=== PATIENT | male | born 1945 | race Caucasian/White ===

== ENCOUNTER 2019-02-17 09:23 | Outpatient (CLI) | payer OTHER ==
--- NOTE | 2019-02-17 14:31 | XRAY Report ---
Reason: COUGH Procedure Date: 02/17/2019 Accession Number: [id number] Procedure: XR - Chest 2 View X-Ray CPT Code: 58151 FULL RESULT: EXAM: CHEST RADIOGRAPHY EXAM DATE: 02/17/2019 09:30 AM. CLINICAL HISTORY: Cough. COMPARISON: CHEST 2 VIEW PA/LAT 01/03/2014 9:55 AM. TECHNIQUE: 2 views. FINDINGS: Lungs/Pleura: No focal opacities evident. No pleural effusion. No pneumothorax. Normal volumes. Mediastinum: Heart and mediastinal contours are unremarkable. Other: None. IMPRESSION: Normal 2-view chest radiography. [facility]
== END 2019-02-17 09:24 | disposition home or self-care (01) ==
LOC: DI 09:23
PROVIDERS: ATTEND Nurse Practitioner Family
DX: R05 Cough (principal)
CPT/HCPCS: 71046

== ENCOUNTER 2021-06-21 15:18 | Outpatient (CLI) | payer OTHER ==
[2021-06-21] MEDS ORDERED: IOPAMIDOL-300 100 ML VIAL ONE (15:39)
[2021-06-21] MEDS ORDERED: IOPAMIDOL-300 100 ML VIAL IVP ONE (16:24)
--- NOTE | 2021-06-21 16:48 | CT Report ---
PROCEDURE: CHEST W INDICATIONS: CHRONIC COUGH CONTRAST: IV CONTRAST: Isovue 300 ml: 100 PO CONTRAST: *NO PO CONTRAST TECHNIQUE: After the administration of intravenous contrast, 5 mm thick sections acquired from the pulmonary api arelis to the posterior costophrenic angles. 7 mm thick coronal MIP reformats were acquired. For radia tion dose reduction, the following was used: automated exposure control, adjustment of mA and/or kV according to patient size. COMPARISON: None. FINDINGS: CHEST: Lungs: Scattered subsegmental scarring/atelectasis. No acute consolidation. Diffuse peribronchial cuf fing suggestive of nonspecific bronchitis and/or reactive airways disease. Pleura: No pleural effusion or pneumothorax. Heart: Normal. Lymph nodes: Normal. Thyroid: Normal. Aorta: Normal in size. Pulmonary arteries: Normal. Esophagus: Normal. Bones: Diffuse spondolytic changes and facet arthropathy. No compression fracture. Upper abdomen: Normal. IMPRESSION: Scattered subsegmental scarring/atelectasis. No acute consolidation. Diffuse peribronchial cuffing suggestive of nonspecific bronchitis and/or reactive airways disease. Reviewed by: Pernell Madrigal MD on 06/21/2021 4:47 PM PDT Approved by: Pernell Madrigal MD on 06/21/2021 4:47 PM PDT Station ID: [id number]
== END 2021-06-21 15:19 | disposition home or self-care (01) ==
LOC: DI 15:18
PROVIDERS: ATTEND Family Medicine
DX: R91.8 Other nonspecific abnormal finding of lung field (principal); R05 Cough
CPT/HCPCS: 71260; Q9967

== ENCOUNTER 2021-11-18 15:42 | Emergency (ER) | payer OTHER ==
--- NOTE | 2021-11-18 21:22 | ED Physician Documentation ---
PD HPI FOCAL NEURO - Stated complaint Stated Complaint: DIZZY,LEFT HAND NUMBNESS - Chief complaint Chief Complaint: Neuro - History obtained from History obtained from: Patient - History of Present Illness Timing - onset: Enter time (13:00), Today Timing - duration: Minutes (40) Timing - details: Abrupt onset Severity of deficit: Mild Weakness: Left Numbness: Hand Associated symptoms: No: Headache, Nausea / vomiting, Chest pain Contributing factors: negative: Anticoagulated, Vascular dz, Atrial fibrillation Baseline status: positive: A&OX3, ambulatory, indep Similar symptoms before: Has not had sx before Recently seen: Not recently seen - Additional information Additional information: at approximately 1 PM today while at work, patient had sudden onset of dizziness which lasted less than a minute. Upon recovering from the dizziness, he went to [employer] a cup and realized his left hand was numb. He denies weakness and made a specific point of determining the extent of the numbness and found that it was the entire hand but limited to just the hand (wrist and proximal areas were NVI). He is right hand dominant. He has not had similar symptoms in the past. The numbness lasted approximately 40 minutes and then resolved. He is asymptomatic at the time of this H+P Review of Systems Constitutional: reports: Reviewed and negative Eyes: reports: Reviewed and negative Cardiac: reports: Reviewed and negative Respiratory: reports: Reviewed and negative GI: reports: Reviewed and negative Musculoskeletal: reports: Reviewed and negative Neurologic: reports: Numbness. denies: Generalized weakness, Focal weakness, Difficulty speaking, Near syncope, Syncope, Headache PD PAST MEDICAL HISTORY - Past Medical History Past Medical History: No - Allergies Allergies/Adverse Reactions: Allergies Allergy/AdvReac Type Severity Reaction Status Date / Time No Known Drug Allergies Allergy Verified 11/18/21 15:53 - Living Situation Living Arrangement: reports: At home - Social History Does the pt smoke?: No PD ED PE NORMAL - Vitals Vital signs reviewed: Yes - General General: Alert and oriented X 3, No acute distress, Well developed/nourished - HEENT HEENT: PERRL, EOMI - Neck Neck: Supple, no meningeal sign - Cardiac Cardiac: RRR, No murmur, No gallop, No rub - Respiratory Respiratory: No respiratory distress, Clear bilaterally - Abdomen Abdomen: Soft, Non tender - Neuro Neuro: Alert and oriented X 3, 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, No motor deficit, No sensory deficit, Normal speech Eye Opening: Spontaneous Motor: Obeys Commands Verbal: Oriented GCS Score: 15 NIHSS - Level of Consciousness Level of consciousness: (0) Alert, Keenly responsive LOC Questions: (0) Answers both Q's correct LOC Commands: (0) Performs both correctly - Gaze Best Gaze: (0) Normal - Visual Visual: (0) No loss - Facial Palsy Facial Palsy: (0) Normal, symmetrical movement - Motor Arms (both separate) Motor Arm (right): (0) No drift Motor Arm (left): (0) No drift - Motor Legs (both separate) Motor Leg (right): (0) No drift Motor Leg (left): (0) No drift - Limb Ataxia Limb Ataxia: (0) Absent - Sensory Sensory: (0) Normal - Best Language Best Language: (0) No aphasia - Dysarthria Dysarthria: (0) Normal - Extinction and Inattention (formally neg Extinction and inattention: (0) No abnormality - Total Score/Results Total Score/Result: 0 Results - Vitals Vitals: Oxygen O2 Source Room air - EKG (time done) No standard instances Rate: Rate (enter#) (54) Rhythm: NSR [place]: Normal Intervals: Normal AL QRS: Normal Ischemia: Normal ST segments Other comments: Other comments (RSr' V1; inverted T III) - Labs Labs: Laboratory Tests 11/18/21 11/18/21 11/18/21 21:21 21:21 21:21 WBC 7.3 RBC 4.51 L Hgb 14.3 Hct 41.1 L MCV 91.1 MCH 31.7 H MCHC 34.8 RDW 11.8 L Plt Count 172 MPV 9.6 Neut # (Auto) 4.6 Lymph # (Auto) 1.8 [place] # (Auto) 0.7 Eos # (Auto) 0.2 Baso # (Auto) 0.0 Absolute Nucleated RBC 0.00 Nucleated RBC % 0.0 Sodium 140 Potassium 3.8 Chloride 103 Carbon Dioxide 26 Anion Gap 11.0 BUN 23 H Creatinine 1.6 H Estimated GFR (MDRD) 42 L Glucose 91 Calcium 9.4 Total Bilirubin 0.5 AST 35 ALT 45 Alkaline Phosphatase 56 Troponin I High Sens 23.7 H* Total Protein 6.8 Albumin 4.2 Globulin 2.6 Albumin/Globulin Ratio 1.6 Lipase 30 - Rads (name of study) chest xray Radiology: Prelim report reviewed, See rad report CTA head Radiology: Prelim report reviewed, See rad report CTA neck Radiology: Prelim report reviewed, See rad report PD MEDICAL DECISION MAKING - ED course Complexity details: reviewed results, re-evaluated patient, considered d ifferential, d/w patient ED course: presents after 40 minute episode of left hand numbness that was immediately preceded by dizziness. Symptoms have resolved by the time of this H+P. No concerning findings on CXR, CTA head, CTA neck. Blood tests reveal minimally elevated high sensitivity troponin but no concerning findings on EKG. Also noted are mildly elevated bun/creatinine (no previous results available for comparison). Results reviewed with patient. Differential diagnosis includes TIA although symptoms being limited to the hand would be atypical. Doubt vascular o cclusion (thrombotic event would typically be gradual onset, embolic event would typically involve pain, color changes to skin, and not resolve without intervention). Numbness limited to hand would be atypical presentation for ACS. Peripheral nerve impingement would be unlikely given rapid onset and non- dermatomal distribution. Results reviewed with patient. Return precautions discussed and advised to follow up with primary care provider for consideration of further testing Departure - Departure Disposition: 01 Home, Self Care Clinical Impression: Dizziness, Numbness Condition: Good Instructions: ED Dizziness UKO, ED Transient Ischemic Attack, ED Paraesthesias Follow-Up: Jair Herrera MD [Primary Care Provider] - Within 1 week Comments: As we discussed, you might have had a TIA but the limitation of symptoms to the left hand and a (brief) episode of dizziness would be unusual for TIA (though still a possible explanation). Your tests tonight are reassuring and do not indicate any emergent concern. Your kidney test (creatinine) was mildly elevated; your doctor might want to repeat this result if it is significantly different from your baseline (I do not have previous results for comparison). Discharge Date/Time: 11/19/21 00:42
[2021-11-18 21:47] LABS: BASOPHILS % (AUTO) 0.5 %; EOSINOPHILS # (AUTO) 0.2 10^3/uL (0.0-0.7); EOSINOPHILS % (AUTO) 2.7 %; HCT - HEMATOCRIT 41.1 % (42.0-52.0); HGB - HEMOGLOBIN 14.3 g/dL (14.0-18.0); LYMPHOCYTES # (AUTO) 1.8 10^3/uL (1.5-3.5); LYMPHOCYTES % (AUTO) 24.1 %; MEAN CORPUSCULAR HEMOGLOBIN 31.7 pg (27.0-31.0); MEAN CORPUSCULAR HGB CONC 34.8 g/dL (32.0-36.0); MEAN CORPUSCULAR VOLUME 91.1 fL (80.0-94.0); MEAN PLATELET VOLUME 9.6 fL (7.4-11.4); MONOCYTES # (AUTO) 0.7 10^3/uL (0.0-1.0); NEUTROPHILS # (AUTO) 4.6 10^3/uL (1.5-6.6); NEUTROPHILS % (AUTO) 62.4 %; PLT - PLATELET COUNT 172 10^3/uL (130-450); RED BLOOD COUNT 4.51 10^6/uL (4.70-6.10); RED CELL DISTRIBUTION WIDTH 11.8 % (12.0-15.0); WHITE BLOOD COUNT 7.3 x10^3/uL (4.8-10.8)
[2021-11-18] MEDS ORDERED: iohexoL-300 100 ML VIAL ONE (22:08)
--- NOTE | 2021-11-18 22:14 | XRAY Report ---
PROCEDURE: Chest 1 View X-Ray INDICATIONS: Chest Pain TECHNIQUE: One view of the chest was acquired. COMPARISON: 02/17/2019 FINDINGS: Surgical changes and devices: None. Lungs and pleura: A few linear left basilar opacities likely represent atelectasis. Mild blunting of left costophrenic angles consistent with a small left pleural effusion or pleural thickening. Mediastinum: Mediastinal contours appear normal. Heart size is normal. Bones and chest wall: No suspicious bony lesions. Overlying soft tissues appear unremarkable. IMPRESSION: 1. Left basilar atelectasis or consolidation. 2. Small left pleural effusion versus pleural thickening. Reviewed by: Jerry Bedolla MD on 11/18/2021 10:12 PM PST Approved by: Jerry Bedolla MD on 11/18/2021 10:12 PM [facility] Station ID: [id number]
[2021-11-18 23:07] LABS: ALBUMIN 4.2 g/dL (3.2-5.5); ALBUMIN/GLOBULIN RATIO 1.6 (1.0-2.2); BILIRUBIN,TOTAL 0.5 mg/dL (0.2-1.0); CALCIUM 9.4 mg/dL (8.5-10.3); CREATININE 1.6 mg/dL (0.6-1.2); POTASSIUM 3.8 mmol/L (3.5-5.0); TOTAL PROTEIN 6.8 g/dL (6.7-8.2)
[2021-11-18] MEDS ORDERED: iohexoL-300 100 ML VIAL IVP ONE (23:29)
--- NOTE | 2021-11-18 23:46 | CT Report ---
PROCEDURE: ANGIO HEAD W/WO INDICATIONS: dizziness, left hand numbness CONTRAST: IV CONTRAST: Isovue 300 ml: 80 PO CONTRAST: *NO PO CONTRAST TECHNIQUE: Precontrast 4.5 mm thick angled axial sections acquired from the foramen magnum to the vertex. Afte r the administration of intravenous contrast, 1 mm thick sections acquired through the [place] of [place] is. Postcontrast 4.5 mm thick sections then re-acquired from the foramen magnum to the vertex. 3-di mensional ykghwsd-vogftybbz-rssxyqmgjq (MIP) and/or volume rendering reformats were acquired of the c entral intracranial vasculature. For radiation dose reduction, the following was used: automated ex posure control, adjustment of mA and/or kV according to patient size. COMPARISON: None available. FINDINGS: Image quality: Excellent. Anterior circulation: Intracranial internal carotid arteries are patent bilaterally. There is multi focal calcification along the cavernous segments of the internal carotid arteries bilaterally with as sociated mild multifocal narrowing. The paired anterior cerebral arteries are patent bilaterally. Th e middle cerebral arteries are also patent bilaterally. The anterior communicating artery is patent. No high-grade stenosis, occlusion, or discrete filling defects. No cerebral aneurysm identified. Posterior circulation: Visualized portions of the vertebral arteries appear patent and join to form a patent basilar artery. The posterior cerebral arteries are patent bilaterally. No high-grade steno sis, occlusion, or discrete filling defects. No cerebral aneurysm identified. CSF spaces: Basal cisterns are patent. No extra-axial fluid collections. Ventricles are normal in size and shape. Brain: No intracranial hemorrhage, mass, or mass effect. Fontana-white matter interface appears preser jonah. No abnormal intracranial enhancement. Skull and face: Calvarium and facial bones appear intact, without suspicious lesions. Sinuses: Visualized sinuses and mastoids are clear. IMPRESSION: 1. No acute intracranial abnormality. 2. No high-grade stenosis or occlusion of the central intracranial arteries. Reviewed by: Jerry Bedolla MD on 11/18/2021 11:45 PM [facility] Approved by: Jerry Bedolla MD on 11/18/2021 11:45 PM PST Station ID: [id number]
--- NOTE | 2021-11-18 23:49 | CT Report ---
PROCEDURE: ANGIO NECK W INDICATIONS: dizziness, left hand numbness CONTRAST: IV CONTRAST: Isovue 300 ml: 80 PO CONTRAST: *NO PO CONTRAST TECHNIQUE: After the administration of intravenous contrast, 1.5 mm axial sections acquired from the aortic arch to the [place] of [place]. Coronal 3-D maximum intensity projection (MIP) and/or volume rendering ref ormats were then performed. For radiation dose reduction, the following was used: automated exposur e control, adjustment of mA and/or kV according to patient size. COMPARISON: Concurrent CTA of the head. FINDINGS: Image quality: Excellent. Carotid system: The great vessels demonstrate conventional anatomy as they arise from the aortic arc h. The origins of the common carotid arteries appear patent. The common carotid arteries demonstrat e normal calibers and courses. The bifurcation regions appear normal bilaterally. The carotid bulbs appear widely patent. The internal carotid arteries demonstrate normal caliber and course. Posterior circulation: The origins of the vertebral arteries appear patent. The more superior porti ons of the vertebral arteries demonstrate normal course and caliber. They join to form a normal appe aring basilar artery. Soft tissues: Visualized neck soft tissues demonstrate no suspicious abnormalities. The thyroid is normal in size and there are no incidental findings. Bones: No suspicious bony lesions. Visualized cervical spine demonstrates straightening of the cerv ical lordosis. There is moderate degenerative disc disease in the lower cervical spine. IMPRESSION: 1. No high-grade stenosis or occlusion of the head and neck arteries. The estimate of stenosis included in the report of the imaging study was calculated using the NASCET method Reviewed by: Jerry Bedolla MD on 11/18/2021 11:48 PM [facility] Approved by: Jerry Bedolla MD on 11/18/2021 11:48 PM PST Station ID: [id number]
[2021-11-19 00:39] VITALS: BP 138/71
== END 2021-11-19 00:42 | disposition home or self-care (01) ==
LOC: ED 15:42
DX: R42 Dizziness and giddiness (principal); R20.0 Anesthesia of skin
CPT/HCPCS: 36415; 70496; 70498; 71045; 80053; 83690; 84484; 85025; 93005; 99282; 99284; Q9967

== ENCOUNTER 2022-07-31 12:40 | Outpatient (CLI) | payer OTHER ==
--- NOTE | 2022-07-31 15:33 | XRAY Report ---
PROCEDURE: Lumbar Spine 2 View INDICATIONS: LOW BACK PAIN TECHNIQUE: 2 views of the lumbar spine were acquired. COMPARISON: None. FINDINGS: Bones: Moderate overall spondylosis. No spinal listhesis. Facet arthropathy, disc space height loss, and osteophytes are present. Soft tissues: Overlying bowel gas pattern is normal. No suspicious soft tissue calcifications. Pro state radiation markers. Moderate fecal loading. IMPRESSION: Moderate lumbar spondylosis. MRI could further evaluate if necessary. Reviewed by: John Walden MD on 07/31/2022 3:31 PM PDT Approved by: John Walden MD on 07/31/2022 3:31 PM PDT Station ID: [id number]
== END 2022-07-31 12:41 | disposition home or self-care (01) ==
LOC: DI.S 12:40
PROVIDERS: ATTEND Nurse Practitioner Family
DX: M47.816 Spondylosis without myelopathy or radiculopathy, lumbar region (principal)

== ENCOUNTER 2022-08-20 12:42 | Outpatient (CLI) | payer OTHER ==
[2022-08-20 13:04] LABS: CALCIUM 9.1 mg/dL (8.5-10.3); CREATININE 1.7 mg/dL (0.6-1.2); POTASSIUM 4.1 mmol/L (3.5-5.0)
[2022-08-20] MEDS ORDERED: GADOBUTROL 10 MMOL/10 ML VIAL ONE (13:10)
[2022-08-20] MEDS ORDERED: GADOBUTROL 10 MMOL/10 ML VIAL IVP ONE (14:21)
--- NOTE | 2022-08-20 15:52 | MRI Report ---
PROCEDURE: MRI brain with and without contrast INDICATIONS: MASS LESION OF BRAIN CONTRAST: IV CONTRAST: Gadavist ml: 8.5 TECHNIQUE: Noncontrast axial T1 spin echo, axial T2 fast spin echo, sagittal and axial FLAIR, coronal T2 fast sp in echo, axial gradient echo, axial diffusion and ADC through the brain. After the administration of contrast, axial and coronal T1 spin echo with fat saturation through the brain. COMPARISON: 06/17/2022 CT brain FINDINGS: Image quality: Excellent. CSF spaces: Basal cisterns are patent. No extra-axial fluid collections. Ventricles are normal in size and shape. Brain: Encephalomalacia and gliosis noted involving the right inferior frontal lobe and frontal oper culum correspond with hypodensity on the prior CT. No evidence of mass lesion. Mild atrophy and white matter chronic ischemic change present. No midline shift. No intracranial bleeds or masses. No abnormal intracranial enhancement. he brain stem appears normal. Diffusion-weighted images demonstrate no acute infarct. Normal intravascular f low voids are present. Skull and face: Calvarial marrow is normal in signal. Orbits appear normal. 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 No evidence of mass lesion, acute i nfarct or intracranial hemorrhage. Reviewed by: Vamshi Fletcher MD on 08/20/2022 2:51 PM [facility] Approved by: Vamshi Fletcher MD on 08/20/2022 2:51 PM [facility] Station ID: [id number]
== END 2022-08-20 12:43 | disposition home or self-care (01) ==
LOC: LAB 12:42
PROVIDERS: ATTEND Family Medicine
DX: R51.9 Headache, unspecified (principal); G93.89 Other specified disorders of brain
CPT/HCPCS: 36415; 70553; 80048; A9585

== ENCOUNTER 2022-08-22 13:05 | Outpatient (CLI) | payer OTHER ==
[2022-08-22] MEDS ORDERED: ALBUTEROL 1 PUFF INH STA (15:47)
== END 2022-08-22 13:06 | disposition home or self-care (01) ==
LOC: RT 13:05
PROVIDERS: ATTEND Nurse Practitioner Family
DX: R05.3 Chronic cough (principal)
CPT/HCPCS: 94060

== ENCOUNTER 2023-01-30 14:59 | Outpatient (CLI) | payer OTHER ==
--- NOTE | 2023-01-30 16:38 | XRAY Report ---
PROCEDURE: Hip w/Pelvis 2-3V LT INDICATIONS: PAIN OF LEFT HIP JOINT TECHNIQUE: AP pelvis with lateral view(s) of the left hip(s). COMPARISON: None. FINDINGS: Bones: No fractures or dislocations. Pelvic ring appears intact. No suspicious bony lesions. Nonu niform joint space narrowing with associated osteophytosis and subchondral sclerosis. Soft tissues: The visualized bowel gas pattern is normal. No suspicious soft tissue calcifications. Prostate brachytherapy clips. IMPRESSION: Moderate to severe left hip osteoarthritis. No displaced fracture. Reviewed by: Andreas Cobb on 01/30/2023 4:37 PM PDT Approved by: Andreas Cobb on 01/30/2023 4:37 PM PDT Station ID: [id number]
== END 2023-01-30 15:00 | disposition home or self-care (01) ==
LOC: DI.S 14:59
PROVIDERS: ATTEND Physician Assistant
DX: M16.12 Unilateral primary osteoarthritis, left hip (principal)

== ENCOUNTER 2023-07-21 09:29 | Outpatient (CLI) | payer OTHER ==
--- NOTE | 2023-07-21 12:45 | XRAY Report ---
PROCEDURE: Chest 2 View X-Ray INDICATIONS: CHRONIC COUGH TECHNIQUE: 2 views of the chest were acquired. COMPARISON: 11/18/2021. FINDINGS: Surgical changes and devices: None. Lungs and pleura: No pleural effusions or pneumothorax. Lungs are clear. Mediastinum: Mediastinal contours appear normal. Heart size is normal. Bones and chest wall: No suspicious bony lesions. Overlying soft tissues appear unremarkable. IMPRESSION: No acute cardiopulmonary process. Reviewed by: Ed Jones MD on 07/21/2023 12:44 PM PDT Approved by: Ed Jones MD on 07/21/2023 12:44 PM PDT Station ID: [id number]
== END 2023-07-21 23:59 | disposition home or self-care (01) ==
LOC: DI.S 09:29
PROVIDERS: ATTEND Physician Assistant
DX: R05.3 Chronic cough (principal)

== ENCOUNTER 2023-11-16 13:44 | Emergency (ER) | payer OTHER ==
--- NOTE | 2023-11-16 14:33 | ED Physician Documentation ---
PD HPI URI - Stated complaint Stated Complaint: HEADACHE,NAUSEA,BLURRY VISION - Chief complaint Chief Complaint: General - History obtained from History obtained from: Patient - History of Present Illness Timing - onset: How many days ago (has had cough, congestion, aches and feverish for few days. His and other family members had flulike symptoms as well this past week. He had increased headache overnight into this morning particularly on the right side. Nausea this morning as well. Several hours ago onset visual deficit.) Timing details: Gradual onset, Still present, Waxing and waning Associated symptoms: Fever (for 2 days), Chills, Nasal congestion, Sore throat, Dry cough Contributing factors: Sick contact (family members with URi type symptoms this past week.). No: Immunocompromised Similar symptoms before: Has not had sx before Recently seen: Not recently seen Review of Systems Constitutional: reports: Fever, Chills, Myalgias, Fatigue Eyes: reports: Loss of vision (hemianopsia onset today with left visual field loss in both eyes.) Nose: reports: Rhinorrhea / runny nose, Congestion Throat: denies: Sore throat Cardiac: denies: Chest pain / pressure Respiratory: reports: Cough GI: reports: Nausea, Vomiting (this morning) : denies: Dysuria, Frequency PD PAST MEDICAL HISTORY - Past Medical History Past Medical History: Yes Cardiovascular: Hypertension, High cholesterol Respiratory: None Neuro: None Endocrine/Autoimmune: None GI: GERD : Other HEENT: None Psych: None Musculoskeletal: None Derm: None Other Past Medical History: prostate cancer, remission - Past Surgical History Past Surgical History: Yes General: Colonoscopy - Present Medications Home Medications: Ambulatory Orders Medication Instructions Recorded Confirmed Rosuvastatin Calcium [Crestor] 10 mg PO DAILY 10/30/22 11/16/23 Tamsulosin [Flomax] 0.4 mg PO DAILY 10/30/22 11/16/23 Aspirin EC [Ecotrin] 81 mg PO DAILY #60 tablet 11/16/23 Clopidogrel [Plavix] 75 mg PO DAILY #30 tablet 11/16/23 - Allergies Allergies/Adverse Reactions: Allergies Allergy/AdvReac Type Severity Reaction Status Date / Time No Known Drug Allergies Allergy Verified 11/16/23 13:53 - Social History Does the pt smoke?: No Smoking Status: Never smoker Does the pt drink ETOH?: No Does the pt have substance abuse?: No - Immunizations Immunizations are current?: No Immunizations: Other immun not current PD ED PE NORMAL - Vitals Vital signs reviewed: Yes - General General: Alert and oriented X 3, Well developed/nourished, Other (mild pallor color. Alert and attentive. ) - HEENT HEENT: Atraumatic, PERRL, EOMI (fundi appear normal. ) - Neck Neck: Supple, no meningeal sign, No adenopathy, No bruit - Cardiac Cardiac: RRR, No murmur - Respiratory Respiratory: Clear bilaterally - Abdomen Abdomen: Soft, Non tender - Derm Derm: Warm and dry. No: Normal color - Neuro Neuro: Alert and oriented X 3, civil rights investigator 2-12 intact, No motor deficit, No sensory deficit, Normal speech Eye Opening: Spontaneous Motor: Obeys Commands Verbal: Oriented GCS Score: 15 Results - Vitals Vitals: Vital Signs - 24 hr 11/16/23 11/16/23 11/16/23 13:55 15:30 16:14 Temperature 36.3 C L 36.7 C Heart Rate 62 58 L Respiratory 18 13 Rate Blood Pressure 151/65 H 165/73 H O2 Saturation 100 96 11/16/23 11/16/23 11/16/23 17:13 18:30 19:45 Temperature Heart Rate 51 L 56 L Respiratory 13 19 Rate Blood Pressure 143/68 H 155/69 H 144/75 H O2 Saturation 97 94 11/16/23 20:00 Temperature Heart Rate 61 Respiratory 18 Rate Blood Pressure 137/64 H O2 Saturation 95 Oxygen O2 Source Room air - Labs Labs: Laboratory Tests 11/16/23 11/16/23 11/16/23 14:00 15:15 15:15 WBC 5.5 RBC 4.30 L Hgb 13.5 L Hct 40.1 L MCV 93.3 MCH 31.4 H MCHC 33.7 RDW 11.9 L Plt Count 144 MPV 9.5 Neut # (Auto) 3.4 Lymph # (Auto) 0.8 L Wilkin # (Auto) 1.1 H Eos # (Auto) 0.1 Baso # (Auto) 0.0 Absolute Nucleated RBC 0.00 Nucleated RBC % 0.0 ESR Sodium 133 L Potassium 4.0 Chloride 101 Carbon Dioxide 25 Anion Gap 7.0 BUN 23 H Creatinine 1.7 H Estimated GFR (MDRD) 39 L Glucose 112 H Calcium 9.2 Magnesium 1.7 Total Bilirubin 0.3 AST 26 ALT 28 Alkaline Phosphatase 49 C-Reactive Protein 1.3 H Total Protein 6.7 Albumin 4.1 Globulin 2.6 Albumin/Globulin Ratio 1.6 Lipase 33 Nasal Adenovirus (PCR) NOT DETECTED Nasal B. parapertussis DNA (PCR) NOT DETECTED Nasal Coronavir 229E PCR NOT DETECTED Nasal Coronavir HKU1 PCR NOT DETECTED Nasal Coronavir NL63 PCR NOT DETECTED Nasal Coronavir OC43 PCR NOT DETECTED Nasal Enterovir/Rhinovir PCR NOT DETECTED Nasal Influ A H1 2008 PCR DETECTED A Nasal Influenza B PCR NOT DETECTED Nasal Parainfluen 1 PCR NOT DETECTED Nasal Parainfluen 2 PCR NOT DETECTED Nasal Parainfluen 3 PCR NOT DETECTED Nasal Parainfluen 4 PCR NOT DETECTED Nasal RSV (PCR) NOT DETECTED Nasal B.pertussis DNA PCR NOT DETECTED Nasal C.pneumoniae (PCR) NOT DETECTED Jose Maria Human Metapneumo PCR NOT DETECTED Nasal M.pneumoniae (PCR) NOT DETECTED Nasal SARS-CoV-2 (PCR) NOT DETECTED 11/16/23 15:15 WBC RBC Hgb Hct MCV MCH MCHC RDW Plt Count MPV Neut # (Auto) Lymph # (Auto) Wilkin # (Auto) Eos # (Auto) Baso # (Auto) Absolute Nucleated RBC Nucleated RBC % ESR 17 Sodium Potassium Chloride Carbon Dioxide Anion Gap BUN Creatinine Estimated GFR (MDRD) Glucose Calcium Magnesium Total Bilirubin AST ALT Alkaline Phosphatase C-Reactive Protein Total Protein Albumin Globulin Albumin/Globulin Ratio Lipase Nasal Adenovirus (PCR) Nasal B. parapertussis DNA (PCR) Nasal Coronavir 229E PCR Nasal Coronavir HKU1 PCR Nasal Coronavir NL63 PCR Nasal Coronavir OC43 PCR Nasal Enterovir/Rhinovir PCR Nasal Influ A H1 2008 PCR Nasal Influenza B PCR Nasal Parainfluen 1 PCR Nasal Parainfluen 2 PCR Nasal Parainfluen 3 PCR Nasal Parainfluen 4 PCR Nasal RSV (PCR) Nasal B.pertussis DNA PCR Nasal C.pneumoniae (PCR) Jose Maria Human Metapneumo PCR Nasal M.pneumoniae (PCR) Nasal SARS-CoV-2 (PCR) - Rads (name of study) head CT Relevant Findings:: Prelim report reviewed (right occiptal focal area of hypodensity c/s acute small CVA. Noted is frontal CVA similar to prior MRI )ct 2021.), EMP independent interpretation of test head/neck CTA Relevant Findings:: Prelim report reviewed (no LVO.) PD Medical Decision Making - ED course Complexity details: reviewed results (CBC is okay. Platelet count normal. ESR is also normal. I was considering "sticky" platelets in setting of current influenze A infection, dehydration with small vessel occlusion due to low flow, but also vasculitis in setting of viral illness. Labs not supportive of this. He is in NSR. Given IVF. ), considered differential (flu like symptoms for 2 days with less intake, fever, aches. Today started with some general ehadache, more to right, nausea and some vomiting, then with onset of left visual field loss both eyes. The visual loss would correspond with likely visual cortex, so evalaute for CVA and LVO with CT and CTA), d/w patient ED course: The patient has Flu viral illness with general symtpoms and underhydration, but onset MARTINEZ and nausea with then viausl field defect today. Vision changes c/w central process as bilateral hemianopia to left field. CT showing acute CVA area occipital right. I talked with Stroke Neurology, who agreed pt not candidate for Lytics and no LVO seen, so no interventions. To give ASA and Plavix, dual antiplatelet for 30 days. SUggests OBS for monitoring symptoms, heart rhyth and to get MRI in AM. Pt is agreeable to this and understanding of the findings and reasoning for further testing. We do not have beds available so pt will board in ER until tomorrow. Pt advised of this and is agreeable. Departure - Departure Clinical Impression: Influenza A, Dehydration, Occipital stroke, Visual field loss following cerebrovascular accident Condition: Stable Record reviewed to determine appropriate education?: Yes Prescriptions: Aspirin EC [Ecotrin] 81 mg PO DAILY #60 tablet Clopidogrel [Plavix] 75 mg PO DAILY #30 tablet Forms: PCP List NIHSS - Level of Consciousness Level of consciousness: (0) Alert, Keenly responsive LOC Questions: (0) Answers both Q's correct LOC Commands: (0) Performs both correctly - Gaze Best Gaze: (0) Normal - Visual Visual: (3) Bilateral Hemianopia - Facial Palsy Facial Palsy: (0) Normal, symmetrical movement - Motor Arms (both separate) Motor Arm (right): (0) No drift Motor Arm (left): (0) No drift - Motor Legs (both separate) Motor Leg (right): (0) No drift Motor Leg (left): (0) No drift - Limb Ataxia Limb Ataxia: (0) Absent - Sensory Sensory: (0) Normal - Best Language Best Language: (0) No aphasia - Dysarthria Dysarthria: (0) Normal - Extinction and Inattention (formally neg Extinction and inattention: (0) No abnormality - Total Score/Results Total Score/Result: 3
--- NOTE | 2023-11-16 14:33 | ED Physician Documentation ---
PD HPI HEADACHE - Stated complaint Stated Complaint: HEADACHE,NAUSEA,BLURRY VISION - Chief complaint Chief Complaint: General - History obtained from History obtained from: Patient PD PAST MEDICAL HISTORY - Past Medical History Past Medical History: Yes Cardiovascular: Hypertension, High cholesterol Respiratory: None Neuro: None Endocrine/Autoimmune: None GI: GERD : Other HEENT: None Psych: None Musculoskeletal: None Derm: None Other Past Medical History: prostate cancer, remission - Past Surgical History Past Surgical History: Yes General: Colonoscopy - Present Medications Home Medications: Ambulatory Orders Medication Instructions Recorded Confirmed Rosuvastatin Calcium [Crestor] 10 mg PO DAILY 10/30/22 11/16/23 Tamsulosin [Flomax] 0.4 mg PO DAILY 10/30/22 11/16/23 - Allergies Allergies/Adverse Reactions: Allergies Allergy/AdvReac Type Severity Reaction Status Date / Time No Known Drug Allergies Allergy Verified 11/16/23 13:53 - Social History Does the pt smoke?: No Smoking Status: Never smoker Does the pt drink ETOH?: No Does the pt have substance abuse?: No - Immunizations Immunizations are current?: No Immunizations: Other immun not current Results - Vitals Vitals: Vital Signs - 24 hr 11/16/23 13:55 Temperature 36.3 C L Heart Rate 62 Respiratory 18 Rate Blood Pressure 151/65 H O2 Saturation 100 Oxygen O2 Source Room air Departure - Departure
[2023-11-16] MEDS ORDERED: KETOROLAC 15 MG/ML VIAL IVP STA (14:58)
[2023-11-16] MEDS ORDERED: SODIUM CHLORIDE 0.9% 1,000 ML IV STA ×2 (14:58→18:11)
[2023-11-16] MEDS ORDERED: ONDANSETRON 4 MG/2 ML VIAL IVP STA (15:00)
[2023-11-16] MEDS ORDERED: HYDROmorphone 0.5 MG/0.5 ML SYRINGE IVP STA (15:00)
[2023-11-16] MEDS ORDERED: DEXAMETHASONE 10 MG/ML VIAL IVP STA (15:00)
[2023-11-16 15:13] LABS: B. PARAPERTUSSIS- RESP PCR PAN NOT DETECTED; B. PERTUSSIS- RESP PCR PANEL NOT DETECTED; C. PNEUMONIAE- RESP PCR PANEL NOT DETECTED; CORONAVIRUS 229E-RESP PCR NOT DETECTED; CORONAVIRUS HKU1-RESP PCR NOT DETECTED; CORONAVIRUS NL63-RESP PCR NOT DETECTED; CORONAVIRUS OC43-RESP PCR NOT DETECTED; HUMAN METAPNEUMOVIRUS NOT DETECTED; INFLUENZA A H1 2009- RESP PCR DETECTED; INFLUENZA B - RESP PCR PANEL NOT DETECTED; M. PNEUMONIAE- RESP PCR PANEL NOT DETECTED; PARAINFLUENZA VIRUS 1 NOT DETECTED; PARAINFLUENZA VIRUS 2 NOT DETECTED; PARAINFLUENZA VIRUS 3 NOT DETECTED; PARAINFLUENZA VIRUS 4 NOT DETECTED; RHINOVIRUS/ENTEROVIRUS NOT DETECTED; RSV- RESP PCR PANEL NOT DETECTED; SARS-CoV-2 -RESP PCR PANEL NOT DETECTED
[2023-11-16 15:36] LABS: BASOPHILS % (AUTO) 0.4 %; EOSINOPHILS # (AUTO) 0.1 10^3/uL (0.0-0.7); EOSINOPHILS % (AUTO) 1.5 %; HCT - HEMATOCRIT 40.1 % (42.0-52.0); HGB - HEMOGLOBIN 13.5 g/dL (14.0-18.0); LYMPHOCYTES # (AUTO) 0.8 10^3/uL (1.5-3.5); LYMPHOCYTES % (AUTO) 14.3 %; MEAN CORPUSCULAR HEMOGLOBIN 31.4 pg (27.0-31.0); MEAN CORPUSCULAR HGB CONC 33.7 g/dL (32.0-36.0); MEAN CORPUSCULAR VOLUME 93.3 fL (80.0-94.0); MEAN PLATELET VOLUME 9.5 fL (7.4-11.4); MONOCYTES # (AUTO) 1.1 10^3/uL (0.0-1.0); MONOCYTES % (AUTO) 20.4 %; NEUTROPHILS # (AUTO) 3.4 10^3/uL (1.5-6.6); PLT - PLATELET COUNT 144 10^3/uL (130-450); RED CELL DISTRIBUTION WIDTH 11.9 % (12.0-15.0); WHITE BLOOD COUNT 5.5 x10^3/uL (4.8-10.8)
[2023-11-16 15:53] LABS: ALBUMIN 4.1 g/dL (3.2-5.5); ALBUMIN/GLOBULIN RATIO 1.6 (1.0-2.2); BILIRUBIN,TOTAL 0.3 mg/dL (0.2-1.0); CALCIUM 9.2 mg/dL (8.5-10.3); CREATININE 1.7 mg/dL (0.6-1.3); CRP - C-REACTIVE PROTEIN 1.3 mg/dL (<0.5); MAGNESIUM 1.7 mg/dL (1.7-2.3); TOTAL PROTEIN 6.7 g/dL (6.4-8.9)
[2023-11-16] MEDS ORDERED: iohexoL-300 100 ML VIAL IVP ONE (17:11)
--- NOTE | 2023-11-16 17:23 | CT Report ---
PROCEDURE: Head WO INDICATIONS: visual change, headache, flu like sxs. TECHNIQUE: Noncontrast 4.5 mm thick angled axial sections acquired from the foramen magnum to the vertex. For r adiation dose reduction, the following was used: automated exposure control, adjustment of mA and/or kV according to patient size. COMPARISON: 06/17/2022, 11/18/2021. Correlation is made with the accompanying head and neck CT angiogram . Correlation is also made with brain MRI, 09/04/2022 FINDINGS: Image quality: Excellent. CSF spaces: Basal cisterns are patent. No extra-axial fluid collections. Ventricles are normal in size and shape. Brain: Focal low density can be seen involving the inferior aspect of the right occipital lobe, whic h appears new compared to the prior examination. No midline shift. No intracranial masses or hemorrhage. Fontana-white matter interface is normal. There is a remote right frontal lobe infarction again seen. Age-appropriate brain parenchymal volume loss and chronic small vessel ischemic change can be seen. Skull and face: Calvarium and visualized facial bones are intact, without suspicious lesions. Sinuses: Visualized sinuses and mastoids are clear. IMPRESSION: Focal low density seen involving the inferior right occipital lobe, which appears new compared to the prior examination and is suspicious for interval infarction. No intracranial hemorrhage is seen. If there is strong clinical concern for a stroke, please consider a dedicated brain MRI for further e valuation (assuming that there is no contraindication to MRI). There is a remote right frontal lobe infarct again seen. Reviewed by: Scout Back MD on 11/16/2023 4:22 PM [facility] Approved by: Scout Back MD on 11/16/2023 4:22 PM [facility] Station ID: [id number]
--- NOTE | 2023-11-16 17:26 | CT Report ---
PROCEDURE: Angio Head/Neck INDICATIONS: flu symptoms, headache; hemianopsia today TECHNIQUE: After the administration of intravenous contrast, 1 mm thick sections acquired from the aortic arch t hrough the [place]. 3-dimensional jnbtztb-sokspwivp-mygzpwutpo (MIP) and/or volume renderin g reformats were acquired of the central intracranial vasculature and neck separately. For radiation dose reduction, the following was used: automated exposure control, adjustment of mA and/or kV acco rding to patient size. CONTRAST: Omni 300 80ml COMPARISON: 11/18/2021 Correlation is also made with the accompanying noncontrast head CT. FINDINGS: Image quality: Limited by bolus timing, with venous contamination. HEAD CT: CSF Spaces: Basal cisterns are patent. No extra-axial fluid collections. Ventricles are normal in size and shape. Brain: No significant abnormality is seen for scanning technique. Skull and face: Calvarium and visualized facial bones appear intact, without suspicious lesions. Sinuses: Focal left sphenoid sinus disease is seen. The paranasal sinuses and the net trainer cells ot herwise appear clear. HEAD CT ANGIOGRAPHY: Anterior circulation: Intracranial internal carotid arteries are normal in size and flow. The flow within the paired anterior cerebral arteries is normal and symmetric. The flow within the middle cer ebral arteries is normal and symmetric. The anterior communicating artery is seen. No aneurysms are seen. Posterior circulation: Visualized portions of the vertebral arteries demonstrate normal caliber, and join to form a normal appearing basilar artery. Flow within the posterior cerebral arteries is norm al and symmetric. No aneurysms are seen. NECK CT ANGIOGRAPHY: Carotid system: The great vessels demonstrate a conventional anatomy as they arise from the aortic a rch. The origins of the common carotid arteries appear patent. The common carotid arteries demonstr ate normal caliber and courses. The bifurcation regions are both widely patent. The internal caroti d arteries demonstrate normal calibers and courses. Posterior circulation: The origins of the vertebral arteries both appear widely patent. The more rod perior extracranial portions of both vertebral arteries also demonstrate normal courses and calibers. They join to form a normal appearing basilar artery. Soft tissues: Visualized neck soft tissues demonstrate no suspicious abnormalities. Bones: No suspicious bony lesions. Visualized cervical spine appears normally aligned. Moderate ce rvical spine degenerative change can be seen. IMPRESSION: No significant intracranial arterial abnormality is seen. No significant abnormality is seen within the arteries of the neck. Additional findings: Focal left sphenoid sinus disease Moderate cervical spine degenerative change The estimate of stenosis included in the report of the imaging study was calculated using the NASCET method Reviewed by: Scout Back MD on 11/16/2023 4:24 PM [facility] Approved by: Scout Back MD on 11/16/2023 4:24 PM [facility] Station ID: [id number]
[2023-11-16] MEDS ORDERED: CLOPIDOGREL 300 MG TABLET PO STA (17:57)
[2023-11-16] MEDS ORDERED: ASPIRIN CHEW 81 MG TABLET PO STA (17:57)
[2023-11-17] MEDS ORDERED: ACETAMINOPHEN 325 MG TABLET PO STA ×3 (03:54→12:52)
[2023-11-17] MEDS ORDERED: ONDANSETRON 4 MG/2 ML VIAL IVP STA (04:51)
[2023-11-17] MEDS ORDERED: CLOPIDOGREL 75 MG TABLET PO STA (10:35)
[2023-11-17] MEDS: ASPIRIN EC 81 MG TABLET PO SCH ×2 (11:16→11:17)
--- NOTE | 2023-11-17 12:12 | MRI Report ---
PROCEDURE: BRAIN WO INDICATIONS: occipital CVA TECHNIQUE: Noncontrast axial T1 spin echo, axial T2 fast spin echo, sagittal and axial FLAIR, coronal T2 fast sp in echo, axial gradient echo, axial diffusion and ADC through the brain. COMPARISON: Head CT dated 11/16/2023. FINDINGS: Image quality: Excellent. CSF Spaces: Basal cisterns are patent. No extra-axial fluid collections. Ventricles are normal in size and shape. Brain: No intracranial masses or hemorrhage. Fontana/white matter interface is normal. Brainstem appe ars normal. Diffusion-weighted images demonstrate a small acute focal infarct involving the right po sterior temporo-occipital cortex, measuring approximately 1.6 x 1.4 cm on diffusion axial image 34 of series 12. There is associated cytotoxic edema. There is no evidence of hemorrhagic transformation. There is no mass effect on the subjacent posterior portion of the right lateral ventricle. Age-relate d volume loss and mild small vessel ischemic change. Old focal posterior right frontal infarct again noted centered in the fontana-white junction region. Normal intravascular flow voids are present. Skull and face: Calvarium has normal marrow signal. Orbits appear normal. Sinuses: Sinuses and mastoids are clear. IMPRESSION: 1. Small acute right posterior temporal occipital infarct with no hemorrhagic transformation or signi ficant mass effect. 2. Old small focal right posterior frontal infarct. Reviewed by: Jigar Packer MD on 11/17/2023 12:11 PM PST Approved by: Jigar Packer MD on 11/17/2023 12:11 PM PST Station ID: [id number]
[2023-11-17] MEDS ORDERED: BENZONATATE 100 MG CAPSULE PO STA (12:52)
[2023-11-17] MEDS ORDERED: ALBUTEROL 1 PUFF INH STA (12:52)
[2023-11-17] MEDS ORDERED: MAG HYDROX/AL HYDROX/SIMETH 30 ML UDC PO STA (16:45)
[2023-11-17 17:12] VITALS: BP 127/57; O2SAT 96
[2023-11-18] MEDS ORDERED: ASPIRIN EC 81 MG TABLET PO SCH (09:00)
== END 2023-11-17 17:55 | disposition home or self-care (01) ==
LOC: ED 13:44
DX: J10.1 Influenza due to other identified influenza virus with other respiratory manifestations (principal); E86.0 Dehydration; I63.89 Other cerebral infarction; H53.8 Other visual disturbances; R29.703 NIHSS score 3
CPT/HCPCS: 36415; 70450; 70496; 70498; 70551; 80053; 83690; 83735; 85025; 85651; 86140; 87633; 93005; 93306; 94640; 96361; 96374; 96375; 96376; 99284; A9270; Q9967

== ENCOUNTER 2024-05-31 08:00 | Outpatient (CLI) | payer OTHER ==
--- NOTE | 2024-05-31 14:20 | XRAY Report ---
PROCEDURE: Lumbar Spine 4V INDICATIONS: LUMBOSACRAL RADICULOPATHY TECHNIQUE: 4 views of the lumbar spine were acquired including oblique views.. COMPARISON: None. FINDINGS: Surgical change: None. Bones: 5 [id number] vertebrae are present. There is normal bony alignment. No vertebral body co mpression fractures. No suspicious bony lesions. Oblique views demonstrate no pars interarticularis defect. Moderate degenerative change throughout the lumbar spine. Mild facet hypertrophy in the lower lumbar spine Soft tissues: Overlying bowel gas pattern is normal. No suspicious soft tissue calcifications. Pros epstein radiotherapy seeds. IMPRESSION: Multilevel degenerative disc disease. Multilevel facet arthropathy. No fracture. No acute osseous lesion. If there is continued clinical concern for pathology, then MRI should be considered for further evaluation. Reviewed by: Melissa Arciniega MD, PhD on 05/31/2024 2:19 PM PDT Approved by: Melissa Arciniega MD, PhD on 05/31/2024 2:19 PM PDT Station ID: [id number]
== END 2024-05-31 23:59 | disposition home or self-care (01) ==
LOC: DI.S 08:00
PROVIDERS: ATTEND Physician Assistant Medical
DX: M51.36 Other intervertebral disc degeneration, lumbar region (principal); M47.816 Spondylosis without myelopathy or radiculopathy, lumbar region